=== PATIENT | female | born 1965 | race Caucasian/White ===

== ENCOUNTER → 2016-12-14 | Outpatient (CLI) | payer BC ==
[~2016-12-14] MED LIST: BACTRIM DS1 TAB PO; DOXYCYCLINE100 MG PO; LASIX20 MG PO; LEVOTHROID (SY25 MCG PO; LEVOTHROID (SY88 MCG PO; ORTHO TRI-CYCL1 EACH PO; TYLENOL325 MG PO
== END | disposition disaster alternative care site (69) ==
LOC: GRAD 14:09
PROC: 3E0U33Z Introduction of Anti-inflammatory into Joints, Percutaneous Approach (ICD-10-PCS; principal; 2016-12-14)
PROC: 3E0U3BZ Introduction of Anesthetic Agent into Joints, Percutaneous Approach (ICD-10-PCS; 2016-12-14)
DX: M79.671 Pain in right foot (principal); M19.071 Primary osteoarthritis, right ankle and foot

== ENCOUNTER 2017-04-13 16:22 | Observation (INO) | payer BC ==
[~2017-04-13] VITALS: Ht 172.7 cm; Wt 77.3 kg
--- NOTE | ~2017-04-13 | ECHO ---
Transthoracic Echocardiography Report (TTE) Demographics Patient Name CYDNEY PAYAN Date of Study 04/14/2017 Patient Number [id number] Visit Number [id number] Date of 1965 Room Number G6322 Gender Female Number Age 51 year(s) Referring Dean Diane Wilmar Finisher Fine Diamond Dies Nayla RVT, RDCS Physician MD Amor Physician Interpreting Meagan Roberts MD Spa Technician Physician Supervising Ordering Marvel Vaca MD, MD/ANDRÉS Physician Nurse Stress Milling Machine Tender Conclusions Contractility Score Summary Hypokinesis of the Mid infero-septal, the Apical septal and the Basal infero-septal segments. Summary Normal cardiac chamber sizes. No significant valvular abnormalities. Procedure Type of Study TTE procedure:2D Echocardiogram, M-Mode, Doppler , Color Doppler. Procedure Date Date: 04/14/2017 Start: 08:17 AM Study Location: Inpatient Portable Technical Quality: Adequate visualization Indications:Chest pain. Appropriate Use Criteria: 9 Patient Status: Routine HR: 99 bpm BP: 110/56 mmHg M-Mode/2D Measurements LV Diastolic Dimension: 4.13 cm LV Systolic Dimension: 2.27 cm LV Septum Diastolic: 1.03 cm LV PW Diastolic: 0.87 cm AO Root Dimension: 2.6 cm Cardiac Output: 7.56 l/min AV Cusp Separation: 1.8 cm RV Diastolic Dimension: 2.58 cm LA volume: 36 ml LVOT: 2.2 cm RV Base: 2.59 cm LVOT VTI: 20.1 cm RV Mid: 1.89 cm LV Stroke volume: 76.37 ml TAPSE: 2.5 cm TDI-S': 17.9 cm/s Doppler Measurements AV Peak Velocity: 0.9 m/s MV Peak E-Wave: 0.87 m/s AV Peak Gradient: 3.23 mmHg MV Peak A-Wave: 0.76 m/s AV Mean Gradient: 2 mmHg MV E/A Ratio: 1.16 LVOT Peak Velocity: 0.95 m/s MV P1/2t: 68 msec TR Gradient:5.86 mmHg PV Peak Velocity: 0.73 m/s Estimated RAP:3 mmHg PV Peak Gradient: 2.11 mmHg Estimated RVSP: 9 mmHg Estimated PASP: 8.86 mmHg E' Septal Velocity: 0.1 m/s A' Septal Velocity: 0.09 m/s E' Lateral Velocity: 0.1 m/s A' Lateral Velocity: 0.08 m/s Findings Left Ventricle Normal left ventricle size and function. Right Ventricle Normal right ventricle structure and function. Left Atrium Normal left atrial size. Right Atrium Normal right atrial size. Mitral Valve Normal mitral valve structure and function. Aortic Valve Normal aortic valve structure and function. Tricuspid Valve Trivial tricuspid regurgitation by color Doppler. Pulmonic Valve Normal pulmonic valve structure and function. Pericardial Effusion No evidence of pericardial effusion. Miscellaneous Visualized portions of the aortic root and ascending aorta appear normal in size. Pleural Effusion No evidence of pleural effusion. Contractility Score LV regional wall motion:(0-Non visualized 1-Normal 2-Hypokinesis 3-Akinesis 4-Dyskinesis 5-Aneurysm) Signature dtt: Alejandra Rhodes dtd: 04/14/17 0817 Physician Self Edit
--- NOTE | ~2017-04-13 | DS ---
PATIENT'S NAME: CYDNEY PAYAN [facility] AGE: 51 Y [address] ROOM: G6322 [place], [place] [address] LOCATION: GPCU ADMIT DATE: 04/13/2017 Discharge Summary DISCHARGE DATE: 04/14/2017 FAMILY PHYSICIAN: Diane Dean MD ATTENDING PHYSICIAN: Nery Medina ADMITTING DIAGNOSIS: Chest pain. DISCHARGE DIAGNOSIS: Chest pain. SECONDARY DIAGNOSES: 1. Leukopenia. 2. Hypothyroidism. 3. Cellulitis. PROCEDURES: 1. CT chest, PE protocol. 2. X-ray of right hand. HISTORY OF PRESENTING ILLNESS: The patient is a 51-year-old female with no significant past medical history, who developed right little finger pain and abscess a week ago. She underwent I and D, and was prescribed Bactrim with a little benefit. The abscess drained by itself on Tuesday, Tuesday, and Tuesday. She started to have some fever low-grade about 100 degrees Fahrenheit. She was seen in the local clinic office today, where she complained of having some chest pain and was transferred to our hospital for further care. She reports this pain as sharp lasting 5 minutes and exacerbated with deep breathing. Pain was nonradiating. HOSPITAL COURSE: The patient was seen in the emergency department. Initial troponin was negative. EKG unremarkable. D-dimer was elevated. A CT chest with contrast was done, showed no signs of PE. The patient did not have any chest pain during stay. The patient was also noted to have leukopenia and also neutropenia. Her white blood cell count was 1.3 and absolute neutrophil count was 0.4. The patient was admitted and had troponin trended, troponin x4 was negative. EKG was unremarkable. The patient is having chest pain. The patient was offered a stress test during this admission, but refused and wants to have stress test done as an outpatient with her primary care physician. Also discussed about her leukopenia and neutropenia. Etiology most likely secondary to Bactrim use. However, she claims that in the past she had some episodes of low white blood cell count and has had a bone marrow biopsy, which was unremarkable. The patient was told to stop Bactrim use and to have repeat CBC in 1 week, and follow up with her primary care physician. We will switch Bactrim to doxycycline for right 5th finger cellulitis, which appears to be resolving now. PATIENT'S NAME: CYDNEY PAYAN [facility] AGE: 51 Y [address] ROOM: [id number] [place] [id number] LOCATION: GPCU ADMIT DATE: 04/13/2017 Discharge Summary DISCHARGE DATE: 04/14/2017 FAMILY PHYSICIAN: Diane Dean MD ATTENDING PHYSICIAN: Nery Medina CONDITION: Stable. DISPOSITION: Home. DISCHARGE MEDICATIONS: See DEC. DISCHARGE INSTRUCTION: Discontinue Bactrim. Check CBC in 1 week. PENDING STUDIES: Blood culture. FOLLOWUP: To follow up with primary care physician. PHYSICAL EXAMINATION: VITAL SIGNS: Temperature 98.4, blood pressure 119/57, respiratory rate 16, pulse 65. GENERAL APPEARANCE: The patient is alert and awake, in no acute distress. CHEST: Clear to auscultation bilaterally. HEART: Regular rate and rhythm. No murmurs, rubs, or gallops. ABDOMEN: Soft, nontender, and nondistended. Bowel sounds present. EXTREMITIES: No edema. Right 5th finger erythema improving. No expressible drainage. No fluctuance. 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 Motor and sensory grossly intact. Greater than 30 minutes was spent on discharge summary and planning. MD CHASTITY ALCOCER/chip /[id number] d: 04/15/17221 t: 04/18/17 0920, DISCHARGE SUMMARY
--- NOTE | ~2017-04-13 | HP ---
PATIENT'S NAME: CYDNEY PAYAN [facility] AGE: 51 Y [address] ROOM: [place] [address] LOCATION: GPCU ADMIT DATE: 04/13/2017 History & Physical DISCHARGE DATE: FAMILY PHYSICIAN: Diane Dean MD ATTENDING PHYSICIAN: AUDIE BENJAMIN DATE OF SERVICE: CHIEF COMPLAINT: Chest pain/fever, not feeling well. HISTORY OF PRESENT ILLNESS: A 51-year-old lady with no significant past medical history developed right little finger pain and abscess 1 week ago. She underwent I and D and was prescribed Bactrim with a little benefit. The patient drained it by herself on Tuesday, Tuesday, and Tuesday. She started to have some fever, low-grade about 100, as well as chills. She was seen in the local clinic office today and where she complained that she is having some chest pain as well and transferred here for further medical care. On my care, she is comfortable, she stated that she had 1 episode of chest pain at the clinic, which was sharp in character, located in the center of the chest, increased with deep breathing, lasted for 5 minutes, no radiation was noted, not associated with any shortness of breath, diaphoresis, or anxiety. It never happened before. It had no alleviating factors except deep breathing. The chest pain is gone now. She thinks that her right little finger is getting better now. REVIEW OF SYSTEMS: All other systems were reviewed and were negative except what is mentioned in the HPI. PAST MEDICAL HISTORY: No significant past medical history. MEDICATIONS: The patient has been taking Lasix 20 mg for leg swelling in the past for a long time. ALLERGIES: THE PATIENT IS ALLERGIC TO ERYTHROMYCIN. FAMILY HISTORY: Significant for diabetes on dad's side and cardiovascular history on mom's side. SOCIAL HISTORY: PATIENT'S NAME: CYDNEY PAYAN [facility] AGE: 51 Y [address] ROOM: [place] [address] LOCATION: GPCU ADMIT DATE: 04/13/2017 History & Physical DISCHARGE DATE: FAMILY PHYSICIAN: Diane Dean MD ATTENDING PHYSICIAN: AUDIE BENJAMIN The patient is never a smoker. No alcohol or drug abuse. 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 PHYSICAL EXAMINATION: VITAL SIGNS: 136/76, 16, 67, afebrile, in no acute distress. Alert and oriented x3. HEENT: Head: Atraumatic, normocephalic. Eyes: Nonicteric. No pallor. Oropharynx: Moist mucous membranes. CARDIOVASCULAR: S1, S2. No murmurs, gallops, or rubs. LUNGS: Clear to auscultation bilaterally. ABDOMEN: Soft, nontender, nondistended. Bowel sounds present. EXTREMITIES: No clubbing, cyanosis, or edema. MUSCULOSKELETAL: Right little finger is tender, swollen, and have blue discoloration. No purulence is noted at this point. LABORATORY DATA: Due to the chest pain, a PE protocol, CAT scan was done, which was negative. UA was done, which was also negative. CMP was done, which was significant for sodium of 130. Complete blood count was done, which was very remarkable for a white count of 1.3, hemoglobin of 13, and platelets of 169. ASSESSMENT AND PLAN: 1. Chest pain. We are going to rule her out. Initial EKG and troponins are nonischemic. We will give her aspirin and take more troponin levels. If it does come back negative, stress test can be considered inpatient or outpatient. 2. Right little finger swelling. It is concerning about the underlying osteo. We will start with the x-ray of the hand. We will obtain 2 sets of blood cultures. Given her leukopenia, there is some suspicion for sepsis, which is not overt at this time. We will hydrate her moderately. We are going to get a retic count to see the bone marrow response and we will follow up on that. 3. Hyponatremia. I believe this is hypovolemic hyponatremia. We will keep checking the sodium levels and follow up after volume resuscitation. 4. Sequential compression devices for deep vein thrombosis prophylaxis, early ambulation is encouraged, and the patient is full code. MD PERLA WATTS/chip PATIENT'S NAME: CYDNEY PAYAN [facility] AGE: 51 Y [address] ROOM: [place] [address] LOCATION: [facility] ADMIT DATE: 04/13/2017 History & Physical DISCHARGE DATE: FAMILY PHYSICIAN: Diane Dean MD ATTENDING PHYSICIAN: AUDIE BENJAMIN /[id number] D: T: 908 HISTORY & PHYSICAL
--- NOTE | ~2017-04-13 | ER ---
PATIENT'S NAME: CYDNEY PAYAN [facility] AGE: 51 Y [address] ROOM: G6322 [place] [address] LOCATION: GPCU ADMIT DATE: 04/13/2017 ER/Outpatient Report DISCHARGE DATE: FAMILY PHYSICIAN: Diane Dean MD ATTENDING PHYSICIAN: AUDIE BENJAMIN HISTORY OF PRESENT ILLNESS: This patient is a 51-year-old female who presented with mid anterior chest pain, nonradiating. Described as pressure. No diaphoresis, shortness of breath, nausea or vomiting. No lightheadedness. EKG was normal as were her cardiac enzymes. The patient initially saw Dr. Adkins here in the emergency department. Dr. Adkins transferred the patient's care over to me at shift change. He asked me to follow up with results of her CT scan PE protocol. She did have an elevated D-dimer and underwent chest CT to rule out pulmonary embolism. See Dr. Adkins's dictation with regard to chief complaint, history of the present illness, past medical history, physical exam, laboratory, x-ray, EKG, study results. Dr. Adkins asked me to follow up with CT scan of the chest results, final diagnosis and treatment plan. CT scan of the chest with the PE protocol showed no evidence of pulmonary embolism or other abnormalities of the lung martinez. The patient is leukopenic with a white count of 1300. She had a differential 41 segs, 19 bands, 20 lymphocytes, 15 monos, 5 eos. Hemoglobin is 13 with hematocrit 38.2, platelet count 169,000. PTT and PT were normal. CMS was normal except for a low sodium 130. Point of care cardiac enzymes were normal. Magnesium was 2.1. Venous pH was 7.42. Lactate was normal at 0.9. Procalcitonin was less than 0.05. The patient is on IV normal saline fluids. IMPRESSION AND PLAN: 1. Leukopenia with bandemia, low-grade fever. No evidence of increased procalcitonin and lactate with a normal pH. Chest x-ray was normal. Urinalysis was clear. Etiology for leukopenia with bandemia is undetermined at this time. May be related to her fifth finger cellulitis. 2. Mid anterior chest pain, nonradiating without accompanied shortness of breath, diaphoresis, nausea, vomiting or lightheadedness. She had normal cardiac enzymes and normal EKG. Did culture urine. Did culture blood. Awaiting results. Did discuss the patient with Dr. Grier, hospitalist. Dr. Grier did come to the emergency room to evaluate the patient and will proceed on his recommendations. The patient will be admitted for further evaluation. SEEMA SWANSON MD PATIENT'S NAME: CYDNEY PAYAN [facility] AGE: 51 Y [address] ROOM: [place] [address] [facility] ADMIT DATE: 04/13/2017 ER/Outpatient Report DISCHARGE DATE: FAMILY PHYSICIAN: Diane Dean MD ATTENDING PHYSICIAN: AUDIE BENJAMIN/chip /[id number] d: 04/14/17 0050 t: 04/14/17 1808, OUTPATIENT REPORT
--- NOTE | ~2017-04-13 | ER ---
PATIENT'S NAME: ORA [facility] AGE: 51 Y [address] ROOM: [place] [address] LOCATION: GPCU ADMIT DATE: 04/13/2017 ER/Outpatient Report DISCHARGE DATE: 04/14/2017 FAMILY PHYSICIAN: Diane Dean MD ATTENDING PHYSICIAN: Nery Medina TIME OF ARRIVAL: 1622 hours. TIME OF EVALUATION: 1625 hours. CHIEF COMPLAINT: Chest pain. HISTORY OF PRESENT ILLNESS: The patient is a 51-year-old female who presents to the emergency department today with a chief complaint of chest pain. She reports it started earlier this morning while at rest. She reports no shortness of breath, but it is worse with deep inspiration. Denies any nausea or vomiting. Did get diaphoretic with it. She appeared to have some vomiting on Tuesday, but has not had any since. It is a pressure. It is currently 2/10 in severity. It is on the left side of her chest. No radiation. The patient did have an abscess on her left finger that she drained. She was started on Bactrim. She does report some subjective fevers and chills. PAST MEDICAL HISTORY: Hypothyroid and leg swelling. PAST SURGICAL HISTORY: Appendectomy. FAMILY HISTORY: Heart disease in mother. Brother with stroke. SOCIAL HISTORY: The patient denies any tobacco, alcohol, or illicit drug use. ALLERGIES: ERYTHROMYCIN. MEDICATIONS: 1. Lasix. 2. Synthroid. 3. Bactrim. PATIENT'S NAME: ORA [facility] AGE: 51 Y [address] ROOM: [place] [address] LOCATION: GPCU ADMIT DATE: 04/13/2017 ER/Outpatient Report DISCHARGE DATE: 04/14/2017 FAMILY PHYSICIAN: Diane Dean MD ATTENDING PHYSICIAN: Nery Medina REVIEW OF SYSTEMS: All systems are reviewed by myself and are negative with the exception of those discussed in the HPI and Past Medical History. PHYSICAL EXAMINATION: VITAL SIGNS: Weight is 78.6 kg. Blood pressure 118/60, pulse 70, respiratory rate 16, temperature 99.7, and oxygen saturation 96% on room air. GENERAL: The patient is a 51-year-old female who appears stated age, in no obvious discomfort. HEENT: Head is normocephalic and atraumatic. Pupils are equal, round, and reactive to light. Extraocular motions are intact. Nares are patent bilaterally. TMs are clear. Oropharynx is clear. Mucous membranes are moist. NECK: Supple. There is no nuchal rigidity. CARDIOVASCULAR: Regular rate and rhythm. No murmurs, rubs, or gallops. LUNGS: Clear to auscultation bilaterally. No wheezes, rales, or rhonchi. ABDOMEN: Soft, nontender, and nondistended. MUSCULOSKELETAL: The patient moves all 4 extremities. The patient's right little finger is slightly discolored. Otherwise, no purulence is noted. LABORATORY AND X-RAY DATA: EKG was obtained, is interpreted by myself, at 1635 and shows sinus rhythm at a rate of 71, normal axis, normal interval. No ST elevation, ST depression, or T-wave inversion. CBC: White blood cell count 1.3. Otherwise, normal. Venous blood gas 7.42/40/44/26/1.3. Lactate is normal. Coags are normal. CK, CK-MB, and troponin are all normal. The proBNP is normal. D-dimer at 1.37. CMP: Sodium 130. Otherwise, unremarkable. LFTs normal. Magnesium is normal. IMPRESSION: 1. Chest pain, rule out acute coronary syndrome. 2. Right little finger swelling. 3. Hyponatremia. 4. Please see Dr. Damian' dictation for further. EMERGENCY DEPARTMENT COURSE: The patient was brought back to the examination room. Seen and evaluated by myself. IV is established. Laboratory analysis and imaging are obtained as described above. I have discussed the results that I have obtained with the patient. I have discussed the case with Dr. Damian. There is the CT scan of the chest that is pending as well as micro from the manual differentiation by the CBC. I have discussed this with Dr. Su. Transfer of care is made at shift change. He will follow up and make appropriate disposition based on that. PATIENT'S NAME: CYDNEY PAYAN [facility] AGE: 51 Y [address] ROOM: [place] [address] [facility] ADMIT DATE: 04/13/2017 ER/Outpatient Report DISCHARGE DATE: 04/14/2017 FAMILY PHYSICIAN: Diane Dean MD ATTENDING PHYSICIAN: Nery Medina DISPOSITION: [place] Damian. ROLY J DO DICK OLVERA/dasial /[id number] d: 04/14/17 1304 t: 04/16/17 0852, OUTPATIENT REPORT
[~2017-04-13 16:22] MED LIST changes: -DOXYCYCLINE100 MG PO; -LASIX20 MG PO; -LEVOTHROID (SY25 MCG PO; -LEVOTHROID (SY88 MCG PO; -ORTHO TRI-CYCL1 EACH PO; -TYLENOL325 MG PO
[2017-04-13 16:56] LABS: HEMATOCRIT 38.2 % (33.0-46.0); MCH 25.9 pg (27.0-34.0); MCV 76.1 fl (83.0-98.0); MPV 9.7 fl (9.4-12.4); PLATELET COUNT 169 K/uL (150-450); RBC 5.02 M/uL (3.50-5.50); RDW-CV 15.3 % (11.9-14.6)
[2017-04-13 16:58] LABS: BICARBONATE 25.9 mmol/L (18.0-23.0); LACTATE 0.9 mEq/L (0.50-1.60); PCO2 40 mmHg (35-45); WBC 1.3 K/uL (4.0-11.0)
[2017-04-13 17:00] LABS: PO2 44 mmHg (80-90)
[2017-04-13 17:20] LABS: INR - (THERAPEUTIC) 0.97 (0.92-1.07); PROTIME 10.2 SECONDS (9.8-11.4); PTT 35 SECONDS (25-32)
[2017-04-13 17:24] LABS: ALBUMIN 3.1 gm/dL (3.5-5.0); ALK PHOS 114 IU/L (33-138); ALT 30 IU/L (12-78); ANION GAP 13.7 (10.0-19.0); AST 38 IU/L (10-40); BLOOD UREA NITROGEN 14 mg/dL (6-24); CALCIUM 8.5 mg/dL (8.5-10.5); CHLORIDE 97 mMol/L (96-110); CO2 23 mMol/L (22-32); CPK 96 IU/L (21-215); ESTIMATED GFR (MDRD EQUATION) 58; MAGNESIUM 2.1 mg/dL (1.8-2.6); POTASSIUM 3.7 mMol/L (3.7-5.1); SODIUM 130 mMol/L (135-145); TOTAL BILIRUBIN 0.2 mg/dL (0.0-1.5); TOTAL PROTEIN 7.6 g/dL (6.0-8.4)
[2017-04-13 18:07] LABS: BILIRUBIN URINE NEGATIVE (NEGATIVE); BLOOD URINE 250 /UL (NEGATIVE); COLOR URINE STRAW (YELLOW); GLUCOSE URINE NEGATIVE (NEGATIVE); KETONE URINE 15 mg/dL (NEGATIVE); LEUKOCYTES URINE NEGATIVE /UL (NEGATIVE); NITRITE URINE NEGATIVE (NEGATIVE); PROTEIN URINE NEGATIVE (NEGATIVE); TURBIDITY URINE CLEAR (CLEAR); UROBILINOGEN URINE NORMAL (NORMAL)
[2017-04-13 18:12] LABS: ABSOLUTE NEUTROPHIL CT (ANC) 0.8 K/uL (1.8-7.8); BANDED NEUTROPHIL # 0.2 K/uL (0.0-0.1); BANDED NEUTROPHILS % 19 %; LYMPHOCYTE # 0.3 K/uL (0.8-4.0); LYMPHOCYTE % 20 %; MONOCYTE # 0.2 K/uL (0.0-1.0); SEGMENTED NEUTROPHIL # 0.5 K/uL (1.8-7.8); SEGMENTED NEUTROPHIL % 41 %
[2017-04-13 18:24] LABS: WBC URINE 0-2 #/HPF (NEGATIVE)
[2017-04-13 18:25] LABS: BACTERIA URINE FEW (NEGATIVE)
[2017-04-13 19:27] LABS: CPK 93 IU/L (21-215)
[2017-04-13] MEDS ORDERED: LASIX20 MG PO (21:17)
[2017-04-13] MEDS ORDERED: LEVOTHROID (SY25 MCG PO (21:19)
[2017-04-13] MEDS ORDERED: TYLENOL325 MG PO (21:23)
[2017-04-13] MEDS ORDERED: LEVOTHROID (SY88 MCG PO (21:23)
[2017-04-13] MEDS ORDERED: ORTHO TRI-CYCL1 EACH PO (21:36)
--- NOTE | 2017-04-13 23:48 | NUR ---
A/OX3. AFEBRILE. HR 80'S. 127/70. 98% ON RA. PATIENT STATES THE PAIN IN HER CHEST COMES AND GOES ON THE L) SIDE OF HER CHEST. PATIENT WAS NOT HAVING ANY PAIN WHEN SHE GOT UP TO THE FLOOR. IV TO L) FA SL. DOCTOR SAW PATIENT IN ER AND WROTE ORDERS. MONITOR CHEST PAIN AND TREND ENZYMES.
--- NOTE | 2017-04-14 03:32 | NUR ---
Significant Event: A/0X3. UP INDEPENDENTLY IN ROOM. TURNS SELF. AFEBRILE. VSS ON RA. IV TO L) FA WITH LR @ 150 MLS/H. STARTED IV VANCO THIS SHIFT AND GAVE A 1 TIME DOSE OF IV ROCEPHIN. PATIENT HAS NOT HAD C/O OF CHEST PAIN THIS SHIFT. ENZYMES HAVE BEEN NEG. ECHO THIS AM. VOIDS FINE. NO BM THIS SHIFT. XRAY TO R) HAND FOR POSSIBLY ABSCESS. RESULTS PENDING. Follow up: CONTINUE WITH PLAN OF CARE.
[2017-04-14 07:06] LABS: HEMOGLOBIN 11.4 g/dL (10.0-15.0); MCH 25.9 pg (27.0-34.0); MCHC 33.5 gm/dL (32.0-36.5); MCV 77.3 fl (83.0-98.0); MPV 9.7 fl (9.4-12.4); RDW-CV 15.4 % (11.9-14.6)
[2017-04-14 07:08] LABS: PLATELET COUNT 135 K/uL (150-450); WBC 1.3 K/uL (4.0-11.0)
[2017-04-14 07:29] LABS: ANION GAP 10.6 (10.0-19.0); BLOOD UREA NITROGEN 11 mg/dL (6-24); CALCIUM 7.5 mg/dL (8.5-10.5); CHLORIDE 107 mMol/L (96-110); CO2 25 mMol/L (22-32); CREATININE 0.8 mg/dL (0.5-1.1); ESTIMATED GFR (MDRD EQUATION) > 60; POTASSIUM 3.6 mMol/L (3.7-5.1); SODIUM 139 mMol/L (135-145)
[2017-04-14 07:38] LABS: ABSOLUTE NEUTROPHIL CT (ANC) 0.4 K/uL (1.8-7.8); BANDED NEUTROPHIL # 0.1 K/uL (0.0-0.1); BANDED NEUTROPHILS % 6 %; LYMPHOCYTE # 0.7 K/uL (0.8-4.0); LYMPHOCYTE % 52 %; MONOCYTE # 0.2 K/uL (0.0-1.0); SEGMENTED NEUTROPHIL # 0.3 K/uL (1.8-7.8); SEGMENTED NEUTROPHIL % 21 %
[2017-04-14] MEDS ORDERED: DOXYCYCLINE100 MG PO (10:32)
--- NOTE | 2017-04-14 11:45 | NUR ---
Discharge Note: VSS. Room air. Refused pnemonia vaccine. New medication teaching given to patient. Patient verblized discharge teaching understanding. Home with [facility].
== END 2017-04-14 11:48 | disposition disaster alternative care site (69) ==
LOC: GMED 16:22 → GPCU 19:45
PROVIDERS: Emergency Medicine; Internal Medicine; ADMIT Internal Medicine Adolescent Medicine
DX: R07.9 Chest pain, unspecified (principal); D72.819 Decreased white blood cell count, unspecified; E03.9 Hypothyroidism, unspecified; D70.9 Neutropenia, unspecified; E87.1 Hypo-osmolality and hyponatremia; Z90.49 Acquired absence of other specified parts of digestive tract; Z79.899 Other long term (current) drug therapy; Z88.1 Allergy status to other antibiotic agents
CPT/HCPCS: G0378; J0696; J3370; J7030; J7040; J7050; J7120; Q9967